=== PATIENT | female | born 1950 | race Caucasian/White ===

== ENCOUNTER → 2018-09-05 | Day surgery (SDC) | payer MEDICARE ==
[~2018-09-05] VITALS: Ht 162.5 cm; Wt 68.0 kg
[~2018-09-05] MED LIST: ALLEGRA ALLERG180 M2 PO; COZAAR25 M1 PO; FLAX SEED OIL1000 MG PO; LOPRESSOR25 MG PO; SALMON OIL 1,01 EACH PO; VITAMIN D32000 UNI1 PO
--- NOTE | ~2018-09-05 | PROC NOTE ---
[place], [place] PROCEDURE NOTE NAME: MARKOS JORDAN UNIT #: [id number] ROOM: DOCTOR: AUGUSTIN MCGEE MD,GARIMA BIRTHDATE: [birth year] DOS: 09/05/2018 PROCEDURE: Fiberoptic Bronchoscopy. PREOPERATIVE DIAGNOSIS: BAL of the left lower lobe with interstitial lung disease. POSTOPERATIVE DIAGNOSIS: BAL; of the left lower lobe with interstitial lung disease. COMPLICATIONS: None. PROCEDURE DESCRIPTION: Informed consent obtained for the patient. The patient was brought to the OR, placed in a supine position. Conscious sedation administered by the Anesthesia Department. After achieving proper sedation, the patient's airway introduced into the mouth. Bronchoscope was introduced into the airway into laryngeal area. Epiglottis and vocal cords were seen. The bronchoscope advanced through the vocal cord to the tracheal lumen, which was noted free of any secretions. Right upper, right middle, right lower, left upper, lingular lobe bronchi were all examined. Small amount of mucous secretions present in the left lower lobe, which were suctioned out. BAL specimen was obtained. The subsegments of the left pleural as well without difficulty. All the culture and BAL specimen sent for all the appropriate testing including cytology, cell differential and all the necessary cultures. Procedure was tolerated by the patient without difficulty. Postoperative findings patient were discussed with the patient's in detail. GARIMA RUFFIN MD CM:PROCNOTE:PROCEDURE NOTE [id number] GARIMA MCGEE MD
[2018-09-05 08:00] VITALS: BP 123/67
[2018-09-05 09:23] VITALS: BP 94/42
[2018-09-05 09:38] VITALS: BP 91/49
[2018-09-05 09:53] VITALS: BP 95/48
[2018-09-05 10:53] LABS: BF LYMPHOCYTES 8 %; BF MACROPHAGES 34 %; BF NEUTROPHILS 56 %
[2018-09-05 11:14] LABS: BF LYMPHOCYTES 6 %; BF NEUTROPHILS 88 %
[2018-09-05 11:15] LABS: BF MACROPHAGES 4 %
[2018-09-06 16:10] LABS: ACID FAST SPEC PROCESSING Concentration (.)
[2018-09-06 16:10] LABS: ACID FAST SPEC PROCESSING Concentration (.)
== END | disposition home or self-care (01) ==
LOC: SDC 09-02 14:00
PROVIDERS: Internal Medicine Critical Care Medicine
DX: J84.89 Other specified interstitial pulmonary diseases (principal); J90 Pleural effusion, not elsewhere classified; R91.8 Other nonspecific abnormal finding of lung field; I10 Essential (primary) hypertension; M19.90 Unspecified osteoarthritis, unspecified site; Z91.041 Radiographic dye allergy status; Z91.013 Allergy to seafood; Z98.51 Tubal ligation status; Z96.651 Presence of right artificial knee joint

== ENCOUNTER 2019-12-24 09:13 | Emergency (ER) | payer MEDICARE ==
[~2019-12-24] VITALS: Ht 162.5 cm; Wt 59.0 kg
[2019-12-24 09:13] VITALS: BP 129/60
[2019-12-24 09:38] LABS: HEMATOCRIT 34.6 % (37.0-47.0); HEMOGLOBIN 10.6 g/dl (12.0-16.0); MEAN CELL VOLUME 109.5 fl (81.0-99.0); MEAN CORPUSCULAR HGB 33.5 pg (27.0-31.0); MEAN CORPUSCULAR HGB CONC 30.6 g/dl (33.0-37.0); MEAN PLATELET VOLUME 9.9 fl (9.6-12.3); PLATELET COUNT AUTOMATED 222 10*3/uL (130-400); RED BLOOD COUNT 3.16 10*6/uL (4.10-5.10); RED CELL DISTRI WIDTH 14.4 % (0-14.5); WHITE BLOOD COUNT 10.4 10*3/uL (4.8-10.8)
[2019-12-24 09:49] LABS: ACT PARTIAL THROMBO TIME 21.4 SECONDS (20.0-32.1); INTERNATIONAL NORM RATIO 0.9 (2.0-3.5)
[2019-12-24 09:56] LABS: ALBUMIN 3.6 gm/dl (3.1-4.5); ALKALINE PHOSPHATASE 441 U/L (45-117); BUN 27 mg/dl (7-24); CHLORIDE 101 mmol/L (98-107); CREATININE 3.75 mg/dL (0.55-1.02); POTASSIUM 3.1 mmol/L (3.5-5.1); SGOT/AST 74 IU/L (3-35); SGPT/ALT 65 U/L (12-78); SODIUM 138 mmol/L (136-145); TOTAL PROTEIN 6.9 gm/dL (6.4-8.2)
[2019-12-24 09:57] LABS: TROPONIN I < 0.015 ng/ml (<0.045)
[2019-12-24 10:00] LABS: PLATELET SUFFICIENCY NORMAL (NORMAL); TOTAL CELLS COUNTED 100 #CELLS
--- NOTE | 2019-12-24 10:39 | NUR ---
RESPOSITIONED IN BED. C/O PAIN IN HER BUTTOCKS.
[2019-12-24 10:40] VITALS: BP 117/58
--- NOTE | 2019-12-24 11:14 | NUR ---
RESTING IN BED IN NO DISTRESS. POX 88-90% ON 15L NRB.
[2019-12-24 11:15] VITALS: BP 112/56
--- NOTE | 2019-12-24 12:19 | NUR ---
HAS BEEN ACCEPTED BY [facility]. WAITING FOR STAT MEDEVAC FOR TRANSPORT.
[2019-12-24 12:20] VITALS: BP 129/55
--- NOTE | 2019-12-24 12:27 | NUR ---
REPORT TO CHRISTEN AT [facility].
--- NOTE | 2019-12-24 12:44 | NUR ---
STAT MED EVAC AT THE BEDSIDE. PT MEDICATED WITH ATIVAN 0.5 MG IV FOR ANXIETY.
--- NOTE | 2019-12-24 12:56 | NUR ---
STAT LEAVING WITH PT NOW.
== END 2019-12-24 13:05 | disposition short-term general hospital (02) ==
LOC: ED 09:13 → EDHOLD 11:36 → ED 11:36 → EDHOLD 11:54 → ICCU 11:54 → ED 13:05
PROVIDERS: Emergency Medicine
DX: J96.01 Acute respiratory failure with hypoxia (principal); I11.0 Hypertensive heart disease with heart failure; I50.9 Heart failure, unspecified; Z91.041 Radiographic dye allergy status; Z91.013 Allergy to seafood; Z79.899 Other long term (current) drug therapy; Z94.2 Lung transplant status

== ENCOUNTER 2020-07-22 01:35 | Emergency (ER) | payer MEDICARE ==
[~2020-07-22] VITALS: Ht 162.5 cm; Wt 56.7 kg
[2020-07-22 02:22] LABS: HEMATOCRIT 33.6 % (37.0-47.0); MEAN CELL VOLUME 94.6 fl (81.0-99.0); MEAN CORPUSCULAR HGB 28.5 pg (27.0-31.0); MEAN CORPUSCULAR HGB CONC 30.1 g/dl (33.0-37.0); MEAN PLATELET VOLUME 9.4 fl (9.6-12.3); PLATELET COUNT AUTOMATED 480 10*3/uL (130-400); RED BLOOD COUNT 3.55 10*6/uL (4.10-5.10); RED CELL DISTRI WIDTH 16.8 % (0-14.5); WHITE BLOOD COUNT 3.5 10*3/uL (4.8-10.8)
[2020-07-22 02:38] LABS: ALBUMIN 2.6 gm/dl (3.1-4.5); CREATININE 3.57 mg/dL (0.55-1.02); TOTAL PROTEIN 6.6 gm/dL (6.4-8.2)
[2020-07-22 02:47] LABS: BASOPHILS 1 % (0-1); PLATELET SUFFICIENCY HIGH (NORMAL); TOTAL CELLS COUNTED 100 #CELLS
== END 2020-07-22 06:10 | disposition short-term general hospital (02) ==
LOC: ED 01:35
PROVIDERS: Emergency Medicine
DX: K57.30 Diverticulosis of large intestine without perforation or abscess without bleeding (principal); Z91.013 Allergy to seafood

== ENCOUNTER 2022-03-15 11:05 | Inpatient (IN) | payer MEDICARE ==
[~2022-03-15] VITALS: Ht 162.5 cm; Wt 42.3 kg
[~2022-03-15 11:05] MED LIST changes: +'zithromax250 MG PO; +ALLEGRA ALLERGY60 M2 PO; +BACTRIM 400-801 EACH PO; +ELIQUIS5 M1 PO; +MAGOX 400400 MG PO; +METOPROLOL25 MG PO; +MYCOPHENOLIC A360 M1 PO; +PRAVASTATIN SOD20 MG PO; +PROGRAF0.2 MG PO; +PROGRAF1 M1 PO; +PROTONIX40 MG PO; +SEROQUEL25 MG PO; +ZOLOFT50 MG PO
[2022-03-15 11:15] VITALS: BP 116/64
[2022-03-15] MEDS ORDERED: ZINC-22050 MG PO (11:40)
[2022-03-15] MEDS ORDERED: PREDNISONE5 MG PO (11:42)
[2022-03-15] MEDS ORDERED: VITAMIN C250 M2 PO (11:48)
[2022-03-15] MEDS ORDERED: FERROUS SULFAT324 M2 PO (11:49)
[2022-03-15] MEDS ORDERED: TYLENOL325 M3 PO (11:52)
[2022-03-15] MEDS ORDERED: ZOFRAN4 MG PO (11:53)
[2022-03-15] MEDS ORDERED: HYDROXYZINE PAM25 M1 PO (11:53)
[2022-03-15 12:00] VITALS: BP 115/49
[2022-03-15 12:04] LABS: HEMATOCRIT 25.7 % (37.0-47.0); MEAN CELL VOLUME 87.1 fl (81.0-99.0); MEAN CORPUSCULAR HGB 26.4 pg (27.0-31.0); MEAN CORPUSCULAR HGB CONC 30.4 g/dl (33.0-37.0); MEAN PLATELET VOLUME 9.4 fl (9.6-12.3); PLATELET COUNT AUTOMATED 351 10*3/uL (130-400); RED BLOOD COUNT 2.95 10*6/uL (4.10-5.10); RED CELL DISTRI WIDTH 15.5 % (0-14.5); WHITE BLOOD COUNT 6.1 10*3/uL (4.8-10.8)
[2022-03-15 12:06] LABS: MANUAL DIFF REFLEX YES
[2022-03-15 12:14] LABS: INTERNATIONAL NORM RATIO 1.2 (2.0-3.5)
[2022-03-15 12:22] LABS: CREATININE 1.88 mg/dL (0.55-1.02); POTASSIUM 4.9 mmol/L (3.5-5.1); TOTAL PROTEIN 6.7 gm/dL (6.4-8.2)
[2022-03-15 12:30] VITALS: BP 118/52
[2022-03-15 12:57] LABS: BILIRUBIN Negative (Negative); BLOOD Negative (Negative); CLARITY Clear (Clear); COLOR Yellow (Yellow); GLUCOSE Negative (Negative); KETONE Negative (Negative); LEUKO ESTERASE Negative (Negative); NITRITE Negative (Negative); UROBILINOGEN 0.2 E.U./dl (0.0-1.0)
[2022-03-15 13:00] VITALS: BP 131/44
[2022-03-15 13:08] LABS: BACTERIA 2+; RBC 0-2 rbc/hpf (0-2); WBC 0-2 wbc/hpf (0-5)
[2022-03-15 13:09] LABS: EPITHELIAL CELLS 0-2
[2022-03-15 13:21] LABS: OVALOCYTES FEW; PLATELET SUFFICIENCY NORMAL (NORMAL); TOTAL CELLS COUNTED 100 #CELLS
[2022-03-15 20:00] VITALS: BP 112/55
[2022-03-15 22:00] VITALS: BP 117/66
[2022-03-16 06:19] LABS: HEMATOCRIT 23.9 % (37.0-47.0); MEAN CELL VOLUME 86.6 fl (81.0-99.0); MEAN CORPUSCULAR HGB 26.4 pg (27.0-31.0); MEAN CORPUSCULAR HGB CONC 30.5 g/dl (33.0-37.0); MEAN PLATELET VOLUME 9.8 fl (9.6-12.3); PLATELET COUNT AUTOMATED 359 10*3/uL (130-400); RED BLOOD COUNT 2.76 10*6/uL (4.10-5.10); RED CELL DISTRI WIDTH 15.5 % (0-14.5); WHITE BLOOD COUNT 5.4 10*3/uL (4.8-10.8)
[2022-03-16 06:55] LABS: CREATININE 1.71 mg/dL (0.55-1.02); POTASSIUM 5.4 mmol/L (3.5-5.1); TOTAL PROTEIN 6.1 gm/dL (6.4-8.2)
[2022-03-16 07:01] LABS: FREE T4 0.82 ng/dl (0.76-1.46); THYROID STIM HORMONE (HS) 1.51 uIU/ml (0.358-4.75)
[2022-03-16 07:04] LABS: MANUAL DIFF REFLEX YES
[2022-03-16 07:55] LABS: BASOPHILS 1 % (0-1); BURR CELLS FEW; PLATELET SUFFICIENCY NORMAL (NORMAL); POLYCHROMASIA SLIGHT; SCHISTOCYTES FEW; TOTAL CELLS COUNTED 100 #CELLS
[2022-03-16 08:00] VITALS: BP 146/61
[2022-03-16 12:00] VITALS: BP 135/60
[2022-03-16 16:00] VITALS: BP 120/70
[2022-03-16 20:00] VITALS: BP 124/77
[2022-03-17] VITALS: BP 127/54
[2022-03-17 06:02] LABS: CREATININE 1.57 mg/dL (0.55-1.02)
[2022-03-17 06:28] LABS: HEMATOCRIT 24.9 % (37.0-47.0); MEAN CELL VOLUME 87.1 fl (81.0-99.0); MEAN CORPUSCULAR HGB 26.9 pg (27.0-31.0); MEAN CORPUSCULAR HGB CONC 30.9 g/dl (33.0-37.0); MEAN PLATELET VOLUME 9.7 fl (9.6-12.3); PLATELET COUNT AUTOMATED 373 10*3/uL (130-400); RED BLOOD COUNT 2.86 10*6/uL (4.10-5.10); RED CELL DISTRI WIDTH 15.7 % (0-14.5); WHITE BLOOD COUNT 6.2 10*3/uL (4.8-10.8)
[2022-03-17 06:42] LABS: MANUAL DIFF REFLEX YES
[2022-03-17 07:51] LABS: BASOPHILS 1 % (0-1); OVALOCYTES FEW; PLATELET SUFFICIENCY NORMAL (NORMAL); POLYCHROMASIA SLIGHT; SCHISTOCYTES FEW; TOTAL CELLS COUNTED 100 #CELLS; TOXIC GRANULATION SLIGHT
[2022-03-17 08:00] VITALS: BP 138/57
[2022-03-17 12:00] VITALS: BP 136/51
[2022-03-17 16:00] VITALS: BP 126/57
[2022-03-17 20:00] VITALS: BP 142/57
[2022-03-18] VITALS: BP 120/52
[2022-03-18 08:00] VITALS: BP 136/54
[2022-03-18 12:00] VITALS: BP 121/61
[2022-03-18 16:00] VITALS: BP 119/64
[2022-03-18 20:00] VITALS: BP 126/63
[2022-03-19] VITALS: BP 127/55
[2022-03-19 05:55] LABS: CREATININE 1.65 mg/dL (0.55-1.02); POTASSIUM 5.1 mmol/L (3.5-5.1)
[2022-03-19 06:35] LABS: HEMATOCRIT 23.4 % (37.0-47.0); MEAN CELL VOLUME 87.3 fl (81.0-99.0); MEAN CORPUSCULAR HGB 26.5 pg (27.0-31.0); MEAN CORPUSCULAR HGB CONC 30.3 g/dl (33.0-37.0); MEAN PLATELET VOLUME 9.4 fl (9.6-12.3); PLATELET COUNT AUTOMATED 330 10*3/uL (130-400); RED BLOOD COUNT 2.68 10*6/uL (4.10-5.10); RED CELL DISTRI WIDTH 15.5 % (0-14.5); WHITE BLOOD COUNT 6.4 10*3/uL (4.8-10.8)
[2022-03-19 06:38] LABS: MANUAL DIFF REFLEX YES
[2022-03-19 08:00] VITALS: BP 100/66
[2022-03-19 08:01] LABS: BASOPHILS 1 % (0-1); PLATELET SUFFICIENCY NORMAL (NORMAL); TOTAL CELLS COUNTED 100 #CELLS; TOXIC GRANULATION SLIGHT
[2022-03-19 08:02] LABS: BURR CELLS MODERATE; ROULEAUX SLIGHT; SCHISTOCYTES FEW
[2022-03-19] MEDS ORDERED: ELIQUIS5 M1 PO (08:50)
== END 2022-03-19 10:05 | DRG 682 ==
LOC: ED 11:05 → EDHOLD 16:40 → 4E 16:40
PROVIDERS: Family Medicine; Internal Medicine; Physician Assistant; ADMIT Emergency Medicine; ATTEND Emergency Medicine
DX: N17.0 Acute kidney failure with tubular necrosis (principal); E43 Unspecified severe protein-calorie malnutrition; E87.1 Hypo-osmolality and hyponatremia; Z94.2 Lung transplant status; Z68.1 Body mass index [BMI] 19.9 or less, adult; I12.9 Hypertensive chronic kidney disease with stage 1 through stage 4 chronic kidney disease, or unspecified chronic kidney disease; Z66 Do not resuscitate; Z51.5 Encounter for palliative care; K59.02 Outlet dysfunction constipation; N18.32 Chronic kidney disease, stage 3b; R73.9 Hyperglycemia, unspecified; R62.7 Adult failure to thrive; D64.9 Anemia, unspecified; E83.41 Hypermagnesemia; E87.5 Hyperkalemia; Z20.822 Contact with and (suspected) exposure to COVID-19; Z82.5 Family history of asthma and other chronic lower respiratory diseases; Z91.041 Radiographic dye allergy status; Z92.89 Personal history of other medical treatment; Z91.013 Allergy to seafood; Z79.899 Other long term (current) drug therapy; Z79.1 Long term (current) use of non-steroidal anti-inflammatories (NSAID)